=== PATIENT | female | born 1965 | race Caucasian/White ===

== ENCOUNTER → 2017-05-06 | Outpatient (CLI) | payer BC ==
--- NOTE | 2017-05-06 08:46 | US ---
EXAMINATION TYPE: US gallbladder DATE OF EXAM: 05/06/2017 COMPARISON: NONE CLINICAL HISTORY: K82.9 Gallbladder Pain. larger habitus EXAM MEASUREMENTS: Liver Length: 17.1 cm Gallbladder Wall: 0.2 cm CBD: 0.4 cm Right Kidney: 9.9 x 5.2 x 4.6 cm Pancreas: Tail obscured by overlying bowel gas, visualized portions wnl Liver: upper limits in size otherwise wnl Gallbladder: wnl Evidence for sonographic Alexander's sign: no CBD: wnl Right Kidney: wnl IMPRESSION: No significant abnormality appreciated.
== END | disposition home or self-care (01) ==
LOC: RADUSWWP 07:55
PROVIDERS: ATTEND Family Medicine
DX: K82.9 Disease of gallbladder, unspecified (principal)
CPT/HCPCS: 76705

== ENCOUNTER → 2017-05-16 | Outpatient (CLI) | payer BC ==
--- NOTE | 2017-05-16 21:15 | NM ---
Nuclear medicine hepatobiliary scan. HISTORY: Pain. COMPARISON: Ultrasound 05/06/2017 DOSAGE: The patient received 8 ounces ensure plus and 5.2 mCi of Technetium 99m Choletec. FINDINGS: There is normal hepatic extraction. Photopenic defect left lobe liver. The gallbladder is s een by 15 minutes. There is biliary to bowel clearance by 20 minutes. Ejection fraction is 66%. IMPRESSION: 1. Normal hepatobiliary exam. Photopenic defect involving the left lobe of the liver has no correspon ding ultrasound abnormality but could be correlated with CT scan for confirmation.
== END ==
LOC: RADNMMAIN 14:55
PROVIDERS: ATTEND Family Medicine
DX: R10.11 Right upper quadrant pain (principal)
CPT/HCPCS: 78226; A9537